=== PATIENT | female | born 1985 | race African-American/Black ===

== ENCOUNTER 2019-03-15 03:24 | Inpatient (IN) ==
[2019-03-15] MEDS ORDERED: SODIUM CHLORIDE 0.9% 1,000 ML IV STA ×3 (06:20→09:21)
[2019-03-15] MEDS ORDERED: ONDANSETRON 4 MG/2 ML VIAL IV ONE ×2 (06:20→09:55)
[2019-03-15 06:31] LABS: Basophils % 0.2 % (0.0-0.8); Hematocrit 43.9 VOL% (35.7-47.0); Hemoglobin 14.2 GM/DL (12.0-16.0); Immature Granulocytes % 0.4 %; Immature Granulocytes Absolute 0.05 #; Lymphocytes # 1.3 10*3/uL (1.4-4.0); Lymphocytes % 11.4 % (21.3-54.2); Mean Corpuscular HGB Conc 32.3 GM/DL (32-36); Mean Corpuscular Volume 83.8 FL (87-102); Mean Platelet Volume 11.7 FL (9.6-12.0); Monocytes % 8.9 % (1.7-12.7); Neutrophils % 79.1 % (38.7-73.9); Platelet Count 241 T/CUMM (130-400); Red Blood Count 5.24 MC/CUMM (3.8-5.5); Red Cell Distribution Width 12.6 % (9.3-17.3); White Blood Count 11.2 T/CUMM (4-12)
[2019-03-15 06:46] LABS: Albumin 3.9 G/DL (3.4-5.0); Bilirubin,Total 0.6 MG/DL (0.2-1.0); Calcium 9.7 MG/DL (8.5-10.1); Osmolality,Calculated 280.4 MOS/KG (273-304); Total Protein 8.1 G/DL (6.4-8.3)
[2019-03-15] MEDS ORDERED: PROMETHAZINE 25 MG/1 ML VIAL IM STA (06:48)
[2019-03-15 07:23] LABS: Apearance,Urine Slightly Hazy (Clear); Bilirubin,Urine Trace mg/dL (Negative); Blood, Urine Negative (Negative); Glucose,Urine (UA) Negative (Negative); Ketones,Urine 2+ mg/dL (Negative); Nitrite,Urine Negative (Negative); Protein,Urine 2+ MG/DL; Urine Color Amber (Yellow)
[2019-03-15 07:24] LABS: Amorphous Crystals,Urine Many /HPF (Few); Mucus,Urine Trace /LPF (Occasional); Squamous Epithelial Cell,Urine Few /HPF (0-10)
[2019-03-15] MEDS ORDERED: DICYCLOMINE 20 MG/2 ML AMP IM ONE (08:06)
[2019-03-15] MEDS ORDERED: METOCLOPRAMIDE 10 MG/2 ML VIAL IV STA (08:06)
[2019-03-15] MEDS ORDERED: ACETAMINOPHEN 325 MG TABLET PO PRN (11:28)
[2019-03-15] MEDS ORDERED: LACTULOSE 20 GM/30 ML UDCUP PO PRN (11:28)
[2019-03-15 12:05] LABS: HDL Cholesterol 43 MG/DL (40-60); Risk Ratio 2.91; Thyroid Stimulating Hormone < 0.005 uIU/ml (0.358-3.74); Triglycerides 75 MG/DL (2-150)
[2019-03-15] MEDS: SODIUM CHLORIDE 0.9% 1,000 ML IV SCH ×2 (13:02→20:36)
[2019-03-15] MEDS: ENOXAPARIN 40 MG/0.4 ML SYRINGE SUBCUT SCH (13:05)
[2019-03-15] MEDS: MORPHINE 4 MG/1 ML VIAL IV PRN ×3 (13:27→23:36)
[2019-03-15 15:02] LABS: Free T4 (Free Thyroxine) 5.52 NG/DL (0.76-1.46)
[2019-03-15] MEDS ORDERED: METOPROLOL TARTRATE 25 MG TABLET PO SCH (17:00)
[2019-03-15] MEDS: PROPRANOLOL 20 MG TABLET PO SCH ×2 (17:08→20:37)
[2019-03-15] MEDS: ALUMINUM/MAGNES/SIMETH MAX STR 30 ML UDCUP PO PRN ×2 (18:20→23:41)
[2019-03-16] MEDS: PROPRANOLOL 20 MG TABLET PO SCH ×4 (00:37→20:22)
[2019-03-16] MEDS: SODIUM CHLORIDE 0.9% 1,000 ML IV SCH ×3 (04:45→21:56)
[2019-03-16] MEDS: ALUMINUM/MAGNES/SIMETH MAX STR 30 ML UDCUP PO PRN ×3 (04:47→20:23)
[2019-03-16 05:52] LABS: Basophils % 0.5 % (0.0-0.8); Eosinophils # 0.1 10*3/uL (0.0-0.87); Eosinophils % 0.8 % (0.00-10.9); Hematocrit 37.3 VOL% (35.7-47.0); Immature Granulocytes % 0.3 %; Immature Granulocytes Absolute 0.03 #; Lymphocytes % 22.6 % (21.3-54.2); Mean Corpuscular HGB Conc 32.2 GM/DL (32-36); Mean Corpuscular Volume 85.2 FL (87-102); Mean Platelet Volume 11.1 FL (9.6-12.0); Monocytes % 11.1 % (1.7-12.7); Neutrophils % 64.7 % (38.7-73.9); Platelet Count 186 T/CUMM (130-400); Red Blood Count 4.38 MC/CUMM (3.8-5.5); Red Cell Distribution Width 12.3 % (9.3-17.3); White Blood Count 8.7 T/CUMM (4-12)
[2019-03-16 06:28] LABS: Calcium 8.5 MG/DL (8.5-10.1); Osmolality,Calculated 278.3 MOS/KG (273-304)
[2019-03-16] MEDS: ONDANSETRON 4 MG/2 ML VIAL IV PRN (08:34)
[2019-03-16] MEDS: MORPHINE 4 MG/1 ML VIAL IV PRN (08:35)
[2019-03-16] MEDS ORDERED: PANTOPRAZOLE 40 MG TABLET PO SCH (09:00)
[2019-03-16] MEDS: ENOXAPARIN 40 MG/0.4 ML SYRINGE SUBCUT SCH (13:28)
[2019-03-17] MEDS: ONDANSETRON 4 MG/2 ML VIAL IV PRN (01:14)
[2019-03-17] MEDS: MORPHINE 4 MG/1 ML VIAL IV PRN (01:18)
[2019-03-17] MEDS: ALUMINUM/MAGNES/SIMETH MAX STR 30 ML UDCUP PO PRN (02:59)
[2019-03-17 05:20] LABS: Basophils % 0.2 % (0.0-0.8); Eosinophils # 0.1 10*3/uL (0.0-0.87); Eosinophils % 0.7 % (0.00-10.9); Hemoglobin 11.6 GM/DL (12.0-16.0); Immature Granulocytes % 1.1 %; Lymphocytes # 1.8 10*3/uL (1.4-4.0); Lymphocytes % 20.2 % (21.3-54.2); Mean Corpuscular HGB Conc 33.1 GM/DL (32-36); Mean Corpuscular Volume 82.7 FL (87-102); Monocytes % 12.3 % (1.7-12.7); Neutrophils % 65.5 % (38.7-73.9); Platelet Count 178 T/CUMM (130-400); Red Blood Count 4.23 MC/CUMM (3.8-5.5); Red Cell Distribution Width 12.1 % (9.3-17.3)
[2019-03-17] MEDS: SODIUM CHLORIDE 0.9% 1,000 ML IV SCH ×2 (05:32→15:11)
[2019-03-17 05:58] LABS: Calcium 8.8 MG/DL (8.5-10.1); Osmolality,Calculated 278.3 MOS/KG (273-304)
[2019-03-17 06:06] LABS: Albumin 2.9 G/DL (3.4-5.0); Calcium 8.5 MG/DL (8.5-10.1); Osmolality,Calculated 273.5 MOS/KG (273-304)
[2019-03-17] MEDS: PROPRANOLOL 20 MG TABLET PO SCH ×3 (08:51→20:45)
[2019-03-17] MEDS ORDERED: FAMOTIDINE 20 MG/2 ML VIAL IV SCH (09:00)
[2019-03-17] MEDS: ENOXAPARIN 40 MG/0.4 ML SYRINGE SUBCUT SCH (15:10)
[2019-03-17 16:11] LABS: Thyroglob. AB 155 IU/mL (<4.0)
[2019-03-18] MEDS: SODIUM CHLORIDE 0.9% 1,000 ML IV SCH ×3 (00:59→16:28)
[2019-03-18] MEDS: ALUMINUM/MAGNES/SIMETH MAX STR 30 ML UDCUP PO PRN ×2 (02:22→19:07)
[2019-03-18] MEDS: ONDANSETRON 4 MG/2 ML VIAL IV PRN ×3 (04:06→19:23)
[2019-03-18 05:00] LABS: Basophils % 0.1 % (0.0-0.8); Eosinophils % 0.5 % (0.00-10.9); Hematocrit 35.1 VOL% (35.7-47.0); Hemoglobin 11.6 GM/DL (12.0-16.0); Immature Granulocytes % 0.1 %; Immature Granulocytes Absolute 0.01 #; Lymphocytes # 1.6 10*3/uL (1.4-4.0); Lymphocytes % 19.9 % (21.3-54.2); Mean Corpuscular Volume 81.6 FL (87-102); Mean Platelet Volume 11.4 FL (9.6-12.0); Monocytes % 12.3 % (1.7-12.7); Neutrophils % 67.1 % (38.7-73.9); Platelet Count 179 T/CUMM (130-400); Red Cell Distribution Width 11.9 % (9.3-17.3); White Blood Count 7.9 T/CUMM (4-12)
[2019-03-18 05:29] LABS: Calcium 8.8 MG/DL (8.5-10.1); Osmolality,Calculated 275.4 MOS/KG (273-304)
[2019-03-18] MEDS ORDERED: PROMETHAZINE INJ 12.5 MG in SODIUM CHLORIDE 0.9% 50 ML IV ONE ×2 (06:39→08:30)
[2019-03-18] MEDS: PROPRANOLOL 20 MG TABLET PO SCH ×2 (09:25→12:41)
[2019-03-18] MEDS: PANTOPRAZOLE 40 MG TABLET PO SCH ×2 (09:26→12:42)
[2019-03-18] MEDS ORDERED: SCOPOLAMINE 1.5 MG PATCH TRANSDERM SCH (10:30)
[2019-03-18] MEDS: MORPHINE 4 MG/1 ML VIAL IV PRN (11:34)
[2019-03-18] MEDS: methIMAzole 5 MG TABLET PO SCH (12:37)
[2019-03-18] MEDS: ENOXAPARIN 40 MG/0.4 ML SYRINGE SUBCUT SCH (13:59)
[2019-03-18] MEDS ORDERED: PROPRANOLOL 10 MG TABLET PO ONE (21:00)
[2019-03-19] MEDS: SODIUM CHLORIDE 0.9% 1,000 ML IV SCH ×3 (01:24→13:01)
[2019-03-19 06:01] LABS: Eosinophils # 0.1 10*3/uL (0.0-0.87); Eosinophils % 0.8 % (0.00-10.9); Hematocrit 32.4 VOL% (35.7-47.0); Hemoglobin 10.8 GM/DL (12.0-16.0); Immature Granulocytes % 0.2 %; Immature Granulocytes Absolute 0.01 #; Lymphocytes # 1.7 10*3/uL (1.4-4.0); Mean Corpuscular HGB Conc 33.3 GM/DL (32-36); Mean Platelet Volume 11.1 FL (9.6-12.0); Monocytes % 14.9 % (1.7-12.7); Neutrophils % 57.1 % (38.7-73.9); Platelet Count 177 T/CUMM (130-400); Red Blood Count 3.95 MC/CUMM (3.8-5.5); Red Cell Distribution Width 11.9 % (9.3-17.3); White Blood Count 6.2 T/CUMM (4-12)
[2019-03-19 06:38] LABS: Calcium 8.6 MG/DL (8.5-10.1); Osmolality,Calculated 280.1 MOS/KG (273-304)
[2019-03-19] MEDS: PANTOPRAZOLE 40 MG TABLET PO SCH (08:39)
[2019-03-19] MEDS: methIMAzole 5 MG TABLET PO SCH (08:40)
[2019-03-19] MEDS ORDERED: ATENOLOL 25 MG TABLET PO SCH (09:00)
[2019-03-19 12:05] VITALS: BP 133/80
[2019-03-19] MEDS: ENOXAPARIN 40 MG/0.4 ML SYRINGE SUBCUT SCH (12:40)
== END 2019-03-19 14:40 | disposition home or self-care (01) | DRG 645 ==
LOC: N.EDINP 03:24 → N.ED 03:24 → SUATTDRO 11:28 → N.2E 17:23 → SUATTDRO 03-16 18:37
PROVIDERS: ADMIT Internal Medicine; ATTEND Family Medicine